=== PATIENT | male | born 1995 | race Two or more races ===

== ENCOUNTER 2020-10-25 05:53 | Outpatient (CLI) | payer OTHER | END 2020-10-25 07:32 | disposition home or self-care (01) | LOC: LAB 05:53 | DX: Z20.828 Contact with and (suspected) exposure to other viral communicable diseases (principal); Z20.818 Contact with and (suspected) exposure to other bacterial communicable diseases ==

== ENCOUNTER 2022-02-06 08:09 | Outpatient (CLI) | payer OTHER | END 2022-02-06 08:36 | disposition home or self-care (01) | LOC: RAD 08:09 | DX: E66.01 Morbid (severe) obesity due to excess calories (principal); Z98.84 Bariatric surgery status ==